=== PATIENT | male | born 1950 | race Caucasian/White ===

== ENCOUNTER → 2018-02-22 | Outpatient (CLI) | payer MEDICARE, OTHER ==
--- NOTE | 2018-02-23 08:31 | RADIOLOGY REPORT (SQ) ---
EXAM DESCRIPTION: MRI HEAD WITHOUT COMPLETED DATE/TIME: 02/22/2018 6:02 pm REASON FOR STUDY: R29.898 OTH SYMPTOMS AND SIGNS INVOLVING THE MUSCULOSKELETAL SYSTEM R27.8 R29.898 OTH SYMPTOMS AND SIGNS INVOLVING THE MUSCULOSKELETAL R27.8 OTHER LACK OF COORDINATION R25.1 TREMOR , UNSPECIFIED LEFT ARM AND HAND PARALYSIS, TONGUE TREMORS COMPARISON: MRI brain 06/11/2016 TECHNIQUE: Multiplanar imaging includes non-contrasted T1, T2, FLAIR, and diffusion with ADC map seq uences. Images stored on PACS. LIMITATIONS: Motion correction rapid sequences were used FINDINGS: ANATOMY: No anomalies. Normal vascular flow voids. Pituitary fossa normal. CSF SPACES: Normal in size and contour. No hemorrhage. CEREBRUM: Sulci and gyri normal in size and contour. Stable punctate foci of bifrontal increased whi te matter signal on FLAIR imaging, likely gliosis along perivascular spaces or minimal small vessel d isease, stable. No evidence of hemorrhage, mass, or extraaxial fluid collection. POSTERIOR FOSSA: No signal alteration. No hemorrhage. No edema, masses or mass effect. Internal rodrigo tory canals, cerebello-pontine angles, mastoids normal. DIFFUSION IMAGING: Negative for acute or sub-acute infarction. ORBITS: No masses. Globes normal. PARANASAL SINUSES: No fluid levels. Mucosa normal. OTHER: No other significant finding. IMPRESSION: ESSENTIALLY NORMAL MRI OF THE BRAIN FOR AGE, WITHOUT INTRAVENOUS GADOLINIUM CONTRAST. EVIDENCE OF ACUTE STROKE: NO. TECHNICAL DOCUMENTATION: JOB ID: [id number] [employer]- All Rights Reserved Reading location - IP/workstation name: [email or web address]
== END ==
LOC: RAD 17:53
PROVIDERS: ATTEND Psychiatry & Neurology Neurology
DX: R25.1 Tremor, unspecified (principal); R25.8 Other abnormal involuntary movements; R27.8 Other lack of coordination; R29.898 Other symptoms and signs involving the musculoskeletal system
CPT/HCPCS: 70551

== ENCOUNTER → 2019-03-14 | Outpatient (CLI) | payer MEDICARE, OTHER ==
--- NOTE | 2019-03-14 16:03 | RADIOLOGY REPORT (SQ) ---
EXAM DESCRIPTION: MRI LUMBAR SPINE WITHOUT COMPLETED DATE/TIME: 03/14/2019 1:28 pm REASON FOR STUDY: M54.5 LOW BACK PAIN M54.5 LOW BACK PAIN M43.06 SPONDYLOLYSIS, LUMBAR REGION COMPARISON: None. TECHNIQUE: Sagittal and Axial imaging includes T1, T2, STIR and gradient echo sequences. Coronal T2/ HASTE imaging. LIMITATIONS: None. FINDINGS: VISUALIZED UPPER ABDOMEN: Limited evaluation. No acute or suspicious findings suggested. SEGMENTATION: No transitional anatomy. The lowest well-developed disc space is labeled L5-S1. ALIGNMENT: There is convex rightward lumbar curvature VERTEBRAE: Intact. BONE MARROW: Degenerative vertebral body endplate changes are present with mixed fatty and sclerotic endplate changes L2 through L5. DISC SIGNAL: Diffuse decreased T2 weighted intervertebral disc signal with disc space loss of height throughout the lumbar spine POSTERIOR ELEMENTS: Generally intact. No pars defect evident. HARDWARE: None in the spine. CORD AND CONUS: Normal in size and signal intensity. Conus at the L1 level. SOFT TISSUES: No aortic aneurysm seen. No bulky retroperitoneal adenopathy or mass. No paraspinal mas s or fluid. T11-12: At the upper edge of the field of view. Mild central canal narrowing and mild bilateral for aminal narrowing from broad diffuse disc bulge and facet and ligament hypertrophy. T12-L1: Mild bilateral facet hypertrophy with mild bilateral foraminal narrowing. No central stenos is. L1-L2: Broad diffuse posterior disc bulging, moderate bilateral facet and ligament hypertrophy. No c entral stenosis. Mild bilateral foraminal narrowing. L2-L3: Broad diffuse posterior disc bulging is present with left paracentral foraminal and lateral di sc bulge. This flattens the thecal sac near the takeoff of the proximal left L3 nerve root in the la teral recess, best shown on axial T2 image 12. Mild to moderate central canal stenosis results from this bulge along with facet and ligament hypertrophy. Elsewhere at L2-3, there is moderate right and high-grade left foraminal narrowing. Effacement of th e fat around the exiting left L2 nerve root within the neural foramen. L3-L4: Broad diffuse posterior disc bulge and bony spurring, bulky bilateral facet and ligament hyper trophy. Mild central canal stenosis best shown on axial T2 images 16 and 17. Moderate right, high-g rade left foraminal narrowing is present with effacement of the fat around the exiting left L3 nerve root in the neural foramen. L4-L5: Broad diffuse posterior disc bulge and bony spurring, bulky bilateral facet hypertrophy cause borderline central canal narrowing best shown on axial image 22. Asymmetric flattening the thecal sa c along the right lateral recess containing the proximal right L5 nerve root on axial image 22. Elsewhere at L4-5, there is high-grade right and left foraminal narrowing with partial effacement of the fat around the exiting L4 nerve roots within the neural foramen. L5-S1: Mild diffuse posterior disc bulging, moderate bilateral facet and ligament hypertrophy. No ce ntral stenosis. High-grade right, moderate left foraminal narrowing. SACRUM: Visualized upper sacrum intact. OTHER: No other significant findings. IMPRESSION: Multilevel significant central and foraminal stenosis as above TECHNICAL DOCUMENTATION: JOB ID: [id number] [employer]- All Rights Reserved Reading location - IP/workstation name: [email or web address]
== END ==
LOC: RAD 12:34
PROVIDERS: ATTEND Internal Medicine
DX: M43.06 Spondylolysis, lumbar region (principal); M51.86 Other intervertebral disc disorders, lumbar region; M54.5 Low back pain
CPT/HCPCS: 72148

== ENCOUNTER → 2019-04-26 | Outpatient (CLI) | payer MEDICARE, OTHER ==
--- NOTE | 2019-04-26 13:39 | RADIOLOGY REPORT (SQ) ---
EXAM DESCRIPTION: MRI CERVICAL SPINE WITHOUT COMPLETED DATE/TIME: 04/26/2019 12:16 pm REASON FOR STUDY: PAIN IN LEFT ARM (M79.602), SPINAL STENOSIS (M48.062), LOW BACK PAIN (M54.5 M48.06 2 SPINAL STENOSIS, LUMBAR REGION WITH NEUROGENIC ADELA M54.5 LOW BACK PAIN M79.602 PAIN IN LEFT AR M COMPARISON: None. TECHNIQUE: Sagittal and Axial imaging includes T1, T2, STIR and gradient echo sequences. LIMITATIONS: Motion artifact. FINDINGS: ALIGNMENT: Reversal of lordotic curve. Grade 1 spondylolisthesis C4-5. VERTEBRAE: Intact. BONE MARROW: Normal. No marrow replacement or reactive changes. DISCS: Desiccation multiple levels. HARDWARE: None in the spine. CORD AND BASE OF BRAIN: Normal in size and signal intensity. SOFT TISSUES: No soft tissue masses. C1-C2: No significant spinal stenosis. C2-C3: No significant spinal stenosis or exit foraminal stenosis. C3-C4: Mild spinal stenosis due to disc osteophyte complex and uncovertebral arthropathy. Moderate n eural foraminal narrowing bilaterally. C4-C5: Moderate spinal stenosis. Severe neural foraminal narrowing bilaterally. C5-C6: Mild spinal stenosis. Severe neural foraminal narrowing bilaterally. C6-C7: Mild spinal stenosis. Moderate neural foraminal narrowing bilaterally. C7-T1: No significant stenosis. UPPER THORACIC: Incompletely imaged. No significant spinal stenosis or exit foraminal stenosis. OTHER: No other significant finding. IMPRESSION: Spinal stenosis at multiple levels, most severe at C4-5. Varying degrees of neural fora venecia stenosis. TECHNICAL DOCUMENTATION: JOB ID: [id number] [employer]- All Rights Reserved Reading location - IP/workstation name: [email or web address]
== END ==
LOC: RAD 10:08
PROVIDERS: ATTEND Orthopaedic Surgery
DX: M48.062 Spinal stenosis, lumbar region with neurogenic claudication (principal); M48.02 Spinal stenosis, cervical region; M54.5 Low back pain; M79.602 Pain in left arm
CPT/HCPCS: 72141

== ENCOUNTER 2019-11-30 21:40 | Observation (INO) | payer MEDICARE, OTHER ==
[2019-11-30] MEDS ORDERED: RINGERS LACTATED IV ONE (22:10)
[2019-11-30] MEDS ORDERED: ONDANSETRON HCL INJ/PF 4 MG/2 ML SDV IV ONE (22:12)
--- NOTE | 2019-11-30 22:20 | ER Document Report ---
ED Fever - General Chief Complaint: Fever Stated Complaint: FEVER Time Seen by Provider: 11/30/19 21:55 Notes: Patient is a 69-year-old male that comes emergency department for chief complaint of fever and shaking chills. He also reports abdominal pain mainly in the upper abdomen and on the right side, he points to his lower ribs. He states that he started having abdominal pain almost 1 day ago after he ate "too small burgers at [employer]". He denies diarrhea but he did vomit once. He denies hematochezia or hematemesis. He denies cough, shortness of breath, chest pain, headache, neck pain, sore throat, congestion. He denies any obvious sick contacts. He denies any abdominal surgeries. Past medical history of right hip replacement, scoliosis, baseline tremor that he is undergoing neurology work-up for. He denies any other medical history including any cardiovascular history, diabetes, or blood thinners. TRAVEL OUTSIDE OF THE [place] IN LAST 30 DAYS: No - Related Data Allergies/Adverse Reactions: No Known Allergies Allergy (Unverified 11/30/19 21:58) Past Medical History - General Information source: Patient - Social History Smoking Status: Never Smoker Frequency of alcohol use: None Drug Abuse: None Lives with: Family Family History: Reviewed & Not Pertinent Neurological Medical History: Reports: Other - Essential tremor Musculoskeletal Medical History: Reports Other - Scoliosis Past Surgical History: Reports: Hx Orthopedic Surgery - Immunizations Immunizations up to date: Yes Hx Diphtheria, Pertussis, Tetanus Vaccination: Yes Review of Systems - Review of Systems Constitutional: See HPI EENT: No symptoms reported Cardiovascular: No symptoms reported Respiratory: No symptoms reported Gastrointestinal: See HPI Genitourinary: No symptoms reported Male Genitourinary: No symptoms reported Musculoskeletal: No symptoms reported Skin: No symptoms reported Hematologic/Lymphatic: No symptoms reported Neurological/Psychological: No symptoms reported Physical Exam - Vital signs Vitals: Temp 98.2 F 11/30/19 21:41 - Notes Notes: GENERAL: Alert, interacts well. No acute distress. HEAD: Normocephalic, atraumatic. EYES: Pupils equal, round, and reactive to light. Extraocular movements intact. Left eye slightly deviated with mild exotropia ENT: Oral mucosa moist, tongue midline. Oropharynx unremarkable. Airway patent. NECK: Full range of motion. Supple. Trachea midline. No lymphadenopathy. LUNGS: Clear to auscultation bilaterally, no wheezes, rales, or rhonchi. No respiratory distress. Non-tender chest wall. HEART: Regular rate and rhythm. No murmur ABDOMEN: There is some tenderness in the generalized mid to right upper abdomen although there is no guarding or rigidity, no distention, bowel sounds are present. GENITOURINARY: No swelling or tenderness EXTREMITIES: Moves all 4 extremities spontaneously. No edema, normal radial and dorsalis pedis pulses bilaterally. No cyanosis. BACK: no cervical, thoracic, lumbar midline tenderness. No saddle anesthesia, normal distal neurovascular exam. Moves all extremities in full range of motion. NEUROLOGICAL: Alert and oriented x3. Normal speech. Cranial nerves II through XII grossly intact. Strength 5/5 in all extremities. PSYCH: Normal affect, normal mood. SKIN: Warm, dry, normal turgor. No rashes or lesions noted. Course - Re-evaluation Re-evalutation: Patient initially mildly hypotensive, mildly tachycardic, and he reportedly had a fever with EMS as well which is been treated. However on my exam patient is alert, conversational, nontoxic in appearance. He does have some upper abdominal pain specifically in the right upper quadrant, he has no other symptoms. CBC shows my leukocytosis with elevation of neutrophils, blood gas unremarkable, lactic acid is mildly elevated at 2.3. Chemistry nonspecific, lipase is not elevated. Urinalysis unremarkable. CT of the abdomen pelvis with IV contrast performed, this shows a very large gallstone and evidence of acute cholecystitis with wall thickening and pericholecystic fluid. Patient was started on Zosyn, has been given IV fluids at 30 cc/kg bolus initially, will be kept n.p.o. I called and spoke with surgeon Dr. Hunter, he will come evaluate the patient. I discussed details with patient at length, called and spoke with his at [phone]. Dr. Hunter evaluated the patient, patient accepted to the surgical service. - Vital Signs Vital signs: Temp Pulse Resp BP Pulse Ox 98.4 F 91 18 129/55 H 98 12/01/19 05:51 12/01/19 05:51 12/01/19 05:51 12/01/19 05:51 12/01/19 05:51 - Laboratory Result Diagrams: 11/30/19 22:27 11/30/19 22:27 Laboratory results interpreted by me: 11/30/19 11/30/19 11/30/19 21:58 22:27 22:27 WBC 11.4 H Seg Neuts % (Manual) 92 H Lymphocytes % (Manual) 1 L Abs Neuts (Manual) 10.5 H Abs Lymphs (Manual) 0.1 L Glucose 123 H Lactic Acid AST 16 L Urine Protein 30 H 11/30/19 22:27 WBC Seg Neuts % (Manual) Lymphocytes % (Manual) Abs Neuts (Manual) Abs Lymphs (Manual) Glucose Lactic Acid 2.3 H AST Urine Protein Discharge - Discharge Clinical Impression: Acute cholecystitis Fever Qualifiers: Fever type: unspecified Qualified Code(s): R50.9 - Fever, unspecified Condition: Stable Disposition: ADMITTED INPATIENT Admitting Provider: Surgicalist Unit Admitted: Surgical Floor
--- NOTE | 2019-11-30 23:08 | RADIOLOGY REPORT (SQ) ---
EXAM DESCRIPTION: XR CHEST 1 VIEW COMPLETED DATE/TME: 11/30/2019 22:11 CLINICAL HISTORY: 69 years, Male, fever COMPARISON: Prior study from 12/15/2017 NUMBER OF VIEWS: One TECHNIQUE: Single frontal view of the chest was obtained portably LIMITATIONS: None. FINDINGS: Cardiac and mediastinal contours are stable. Lungs are clear. No pleural effusion or pneumothorax. IMPRESSION: No acute disease. copyright 2010 [employer]- All Rights Reserved
[2019-11-30 23:09] LABS: APPEARANCE,URINE SLIGHTLY-CLOUDY; BILIRUBIN,URINE NEGATIVE (NEGATIVE); COLOR,URINE YELLOW; GLUCOSE, URINE NEGATIVE (NEGATIVE); KETONES,URINE NEGATIVE (NEGATIVE); PROTEIN,URINE 30 mg/dL (NEGATIVE); URINE SPECIFIC GRAVITY 1.025; UROBILINOGEN,URINE NEGATIVE mg/dL (<2.0)
[2019-11-30 23:17] LABS: HEMATOCRIT 40.2 % (37.9-51.0); HEMOGLOBIN 13.8 g/dL (13.5-17.0); MEAN CORPUSCULAR HEMOGLOBIN 31.7 pg (27.0-33.4); MEAN CORPUSCULAR HGB CONC 34.4 g/dL (32.0-36.0); MEAN CORPUSCULAR VOLUME 92 fl (80-97); PLATELET COUNT 219 10^3/uL (150-450); RED BLOOD COUNT 4.35 10^6/uL (4.35-5.55); WHITE BLOOD COUNT 11.4 10^3/uL (4.0-10.5)
[2019-11-30 23:20] LABS: VENOUS BLOOD BASE EXCESS 1.1 mmol/L; VENOUS BLOOD HCO3 26.1 mmol/L (20-32); VENOUS BLOOD PCO2 42.8 mmHg (35-63); VENOUS BLOOD PH 7.4 (7.30-7.42)
[2019-11-30 23:23] LABS: INTERNATIONAL RATION (INR) 1.16; PROTHROMBIN TIME 14.9 SEC (11.4-15.4)
[2019-11-30 23:36] LABS: ALKALINE PHOSPHATASE 78 U/L (38-126); ANION GAP 8 (5-19); ASPARTATE AMINO TRANSFERASE 16 U/L (17-59); BILIRUBIN,TOTAL 1.2 mg/dL (0.2-1.3); BLOOD UREA NITROGEN 14 mg/dL (7-20); CALCIUM 8.8 mg/dL (8.4-10.2); CARBON DIOXIDE 27 mmol/L (22-30); CHLORIDE 103 mmol/L (98-107); GLUCOSE 123 mg/dL (75-110); POTASSIUM 3.7 mmol/L (3.6-5.0); TOTAL PROTEIN 6.4 g/dL (6.3-8.2)
[2019-11-30 23:42] LABS: ABSOLUTE LYMPHOCYTES# (MANUAL) 0.1 10^3/uL (0.5-4.7); ABSOLUTE MONOCYTES # (MANUAL) 0.8 10^3/uL (0.1-1.4); BASOPHILS % (MANUAL) 0 % (0-2); EOSINOPHILS % (MANUAL) 0 % (0-6); LYMPHOCYTES % (MANUAL) 1 % (13-45); MONOCYTES % (MANUAL) 7 % (3-13); SEGMENTED NEUTROPHILS % (MAN) 92 % (42-78); TOTAL CELLS COUNTED 100
[2019-11-30 23:48] LABS: OVALOCYTES SLIGHT; PLATELET COMMENT ADEQUATE; POIKILOCYTOSIS SLIGHT; TOXIC GRANULATION SLIGHT
--- NOTE | 2019-12-01 00:53 | RADIOLOGY REPORT (SQ) ---
EXAM DESCRIPTION: CT ABDOMEN PELVIS WITH IV CONTRAST COMPLETED DATE/TME: 11/30/2019 23:45 CLINICAL HISTORY: 69 years Male, fever, mid/upper abd pain Comparison: None. Technique: IV contrast. Coronal and sagittal reformat. This exam was performed according to our departmental dose-optimization program, which includes automated exposure control, adjustment of the mA and/or kV according to patient size and/or use of iterative reconstruction technique. [facility]: Dose Right [facility]: CareDose [facility]: Dose Right [facility]: Teradose 4D [facility]: [employer] LIMITATIONS: None Findings: 2.6 cm gallstone, diffuse gallbladder wall thickening, and small pericholecystic fluid. Differential diagnosis includes cholecystitis. Right total hip arthroplasty. Vacuum disc desiccation. Colonic diverticulosis. Minimal hiatal hernia. Moderate disc bulges between the L2 and S1 levels. No ascites. No pneumoperitoneum. No evidence of appendicitis. Appendix not definitively discerned/appendectomy. No bowel obstruction. No hydronephrosis or hydroureter. No renal/ureteral stone. No evidence of abdominal aortic aneurysm. Inferior thorax, liver, pancreas, spleen, adrenals, renal system, gastrointestinal tract, pelvic organs, lymphatics, vasculature, and musculoskeleton appear otherwise unremarkable. IMPRESSION: 2.6 cm gallstone, diffuse gallbladder wall thickening, and small pericholecystic fluid. Differential diagnosis includes acute cholecystitis.
[2019-12-01] MEDS ORDERED: PIPERACILLIN/TAZOBACTAM 3.375 GM VIAL IV ONE (00:54)
[2019-12-01] MEDS ORDERED: ONDANSETRON HCL INJ/PF 4 MG/2 ML SDV IV PRN (03:20)
[2019-12-01] MEDS ORDERED: NORMAL SALINE 500 ML IV ONE (03:20)
--- NOTE | 2019-12-01 03:20 | PDOC H&P ---
History of Present Illness Admission Date/PCP: MICHAEL BROWN MD Patient complains of: Abdominal pains and fever History of Present Illness: SY SHELDON JR is a 69 year old male started complaining of epigastric and right upper quadrant pains 2 days ago. Yesterday patient complained of fever and subsequently went to ED or CT scan of the abdomen showed large 2.6 cm stone with thickening of the gallbladder wall compatible with acute cholecystitis. He ate greasy food prior to initial abdominal pains. Initially associated with nausea and vomiting. Past Surgical History Past Surgical History: Reports: Orthopedic Surgery - Hip surgery Social History Lives with: Family Smoking Status: Former Smoker Family History Parental Family History Reviewed: Yes Children Family History Reviewed: No Sibling(s) Family History Reviewed.: No Medication/Allergy Allergies/Adverse Reactions: No Known Allergies Allergy (Unverified 11/30/19 21:58) Review of Systems Constitutional: PRESENT: as per HPI Cardiovascular: PRESENT: other - Denies chest pain Snarr cough Gastrointestinal: PRESENT: abdominal pain, nausea, vomiting Musculoskeletal: PRESENT: other - Has tremors of the upper and lower extremities. At present not diagnosed as having Parkinson's Neurological: PRESENT: tremor(s) - Of all extremities Physical Exam Vital Signs: Temp Pulse Resp BP Pulse Ox 99.4 F 102 H 14 118/69 99 11/30/19 23:30 11/30/19 21:56 12/01/19 03:01 12/01/19 03:01 12/01/19 03:01 Intake & Output 11/29/19 11/30/19 12/01/19 06:59 06:59 06:59 Intake Total 11 Balance 11 Weight 89.811 kg General appearance: PRESENT: mild distress Head exam: PRESENT: atraumatic Eye exam: PRESENT: conjunctiva pink Mouth exam: PRESENT: moist Neck exam: PRESENT: full ROM Respiratory exam: PRESENT: clear to auscultation lilia Cardiovascular exam: PRESENT: RRR Pulses: PRESENT: normal radial pulses Vascular exam: PRESENT: normal capillary refill GI/Abdominal exam: PRESENT: soft, tenderness - Mild tenderness in the right upper quadrant Rectal exam: PRESENT: deferred Extremities exam: PRESENT: other - Tremors of the upper and lower extremities Musculoskeletal exam: PRESENT: ambulatory Neurological exam: PRESENT: alert, oriented to person, oriented to place, oriented to time, oriented to situation Psychiatric exam: PRESENT: appropriate affect Skin exam: PRESENT: normal color, warm Results Laboratory Results: 11/30/19 22:27 11/30/19 22:27 11/30/19 11/30/19 11/30/19 21:58 22:27 22:27 WBC 11.4 H RBC 4.35 Hgb 13.8 Hct 40.2 MCV 92 MCH 31.7 MCHC 34.4 RDW 13.0 Plt Count 219 Seg Neutrophils % Not Reportable VBG pH VBG pCO2 VBG HCO3 VBG Base Excess Sodium 137.5 Potassium 3.7 Chloride 103 Carbon Dioxide 27 Anion Gap 8 BUN 14 Creatinine 0.81 Est GFR ( Amer) > 60 Glucose 123 H Lactic Acid Calcium 8.8 Total Bilirubin 1.2 AST 16 L Alkaline Phosphatase 78 Total Protein 6.4 Albumin 4.0 Lipase Urine Color YELLOW Urine Appearance SLIGHTLY-CLOUDY Urine pH 5.0 Ur Specific [place] 1.025 Urine Protein 30 H Urine Glucose (UA) NEGATIVE Urine Ketones NEGATIVE Urine Blood NEGATIVE Urine RBC (Auto) 1 11/30/19 11/30/19 11/30/19 22:27 22:27 22:27 WBC RBC Hgb Hct MCV MCH MCHC RDW Plt Count Seg Neutrophils % VBG pH 7.40 VBG pCO2 42.8 VBG HCO3 26.1 VBG Base Excess 1.1 Sodium Potassium Chloride Carbon Dioxide Anion Gap BUN Creatinine Est GFR ( Amer) Glucose Lactic Acid 2.3 H Calcium Total Bilirubin AST Alkaline Phosphatase Total Protein Albumin Lipase 42.2 Urine Color Urine Appearance Urine pH Ur Specific [place] Urine Protein Urine Glucose (UA) Urine Ketones Urine Blood Urine RBC (Auto) 12/01/19 01:13 WBC RBC Hgb Hct MCV MCH MCHC RDW Plt Count Seg Neutrophils % VBG pH VBG pCO2 VBG HCO3 VBG Base Excess Sodium Potassium Chloride Carbon Dioxide Anion Gap BUN Creatinine Est GFR ( Amer) Glucose Lactic Acid 1.4 Calcium Total Bilirubin AST Alkaline Phosphatase Total Protein Albumin Lipase Urine Color Urine Appearance Urine pH Ur Specific [place] Urine Protein Urine Glucose (UA) Urine Ketones Urine Blood Urine RBC (Auto) 11/30/19 22:27 Troponin I < 0.012 Impressions: Chest X-Ray 11/30/19 22:11 IMPRESSION: No acute disease. copyright 2011 [employer]- All Rights Reserved Abdomen/Pelvis CT 11/30/19 23:45 IMPRESSION: 2.6 cm gallstone, diffuse gallbladder wall thickening, and small pericholecystic fluid. Differential diagnosis includes acute cholecystitis. Assessment & Plan - Diagnosis (1) Cholelithiasis Is this a current diagnosis for this admission?: Yes (2) Acute cholecystitis Is this a current diagnosis for this admission?: Yes (3) Fever Qualifiers: Fever type: unspecified Qualified Code(s): R50.9 - Fever, unspecified Is this a current diagnosis for this admission?: Yes - Time Time Spent: 30 to 50 Minutes - Inpatient Certification Medical Necessity: Need For IV Fluids, Need for IV Antibiotics, Need for Surgery - Plan Summary Plan Summary: 69-year-old male with about 2 days duration of right upper quadrant pains as sociated with fever nausea and vomiting came to ED last night. Patient denies any underlying health problems other than tremors of the extremities though he claims not diagnosed to have Parkinson's disease yet. A CT scan of the abdomen was done which showed a large gallstone about 2.6 cm with dilated gallbladder and thickened gallbladder wall compatible with acute cholecystitis. Plans: Start IV antibiotics Hydrate For laparoscopic cholecystectomy by Dr. Burroughs today
[2019-12-01] MEDS: DEXTROSE 5%-LACTATED RINGERS 1,000 ML IV PRN ×2 (04:43→19:52)
--- NOTE | 2019-12-01 06:06 | PDOC CONSULTATION ---
Consultation Consult Date: 12/01/19 Attending physician:: FARRAH DAWSON Provider Consulted: STEFFEN SAMPSON Consult reason:: Abnormal EKG History of Present Illness Admission Date/PCP: 12/01/19 03:16 MICHAEL BROWN MD Patient complains of: Abdominal pain and fever History of Present Illness: SY SHELDON JR is a 69 year old male with a past medical history of involuntary tremor presents with 2 days of right upper quadrant pain. Emergency room work-up reveals an abnormal EKG and a 2.6 cm stone with gallbladder wall thickening suggestive of acute cholecystitis. He started on empiric antibiotics and referred to surgery. Patient denies history of abnormal heart rhythm, palpitations, nausea vomiting or chest pain with exertion Past Medical History Cardiac Medical History: Reports: None Pulmonary Medical History: Reports: None Neurological Medical History: Reports: Other - 2 years of involuntary tremor suggestive of Parkinson's Malignancy Medical History: Reports: None Psychiatric Medical History: Reports: None Past Surgical History Past Surgical History: Reports: Orthopedic Surgery - Hip surgery Social History Information Source: Patient, [facility] Records Lives with: Family Smoking Status: Former Smoker Frequency of Alcohol Use: Rare Drugs: None - Advance Directive Resuscitation Status: Full Code Family History Family History: Hypertension Parental Family History Reviewed: Yes Children Family History Reviewed: Yes Sibling(s) Family History Reviewed.: Yes Medication/Allergy Allergies/Adverse Reactions: No Known Allergies Allergy (Unverified 11/30/19 21:58) Review of Systems Constitutional: ABSENT: chills, fever(s), headache(s), weight gain, weight loss Eyes: ABSENT: visual disturbances Ears: ABSENT: hearing changes Cardiovascular: ABSENT: chest pain, dyspnea on exertion, edema, orthropnea, palpitations Respiratory: ABSENT: cough, hemoptysis Gastrointestinal: ABSENT: abdominal pain, constipation, diarrhea, hematemesis, hematochezia, nausea, vomiting Genitourinary: ABSENT: dysuria, hematuria Musculoskeletal: ABSENT: joint swelling Integumentary: ABSENT: rash, wounds Neurological: ABSENT: abnormal gait, abnormal speech, confusion, dizziness, focal weakness, syncope Psychiatric: ABSENT: anxiety, depression, homidical ideation, suicidal ideation Endocrine: ABSENT: cold intolerance, heat intolerance, polydipsia, polyuria Hematologic/Lymphatic: ABSENT: easy bleeding, easy bruising Physical Exam Vital Signs: Temp Pulse Resp BP Pulse Ox 98.7 F 102 H 19 122/64 98 12/01/19 05:00 11/30/19 21:56 12/01/19 05:01 12/01/19 05:00 12/01/19 05:01 Intake & Output 11/29/19 11/30/19 12/01/19 11:59 11:59 11:59 Intake Total 3190 Balance 3190 Weight 89.811 kg General appearance: PRESENT: no acute distress, cooperative, well-developed, well-nourished Head exam: PRESENT: atraumatic, normocephalic Eye exam: PRESENT: conjunctiva pink, EOMI, PERRLA. ABSENT: scleral icterus Ear exam: PRESENT: normal external ear exam Mouth exam: PRESENT: moist, tongue midline Neck exam: ABSENT: carotid bruit, JVD, lymphadenopathy, thyromegaly Respiratory exam: PRESENT: clear to auscultation lilia. ABSENT: rales, rhonchi, wheezes Cardiovascular exam: PRESENT: RRR. ABSENT: diastolic murmur, rubs, systolic murmur Pulses: PRESENT: normal dorsalis pedis pul Vascular exam: PRESENT: normal capillary refill GI/Abdominal exam: PRESENT: normal bowel sounds, soft. ABSENT: distended, guarding, mass, organolmegaly, rebound, tenderness Rectal exam: PRESENT: deferred Extremities exam: PRESENT: full ROM. ABSENT: calf tenderness, clubbing, pedal e stephanie Neurological exam: PRESENT: alert, awake, oriented to person, oriented to place, oriented to time, oriented to situation, CN II-XII grossly intact, other - Tongue fasciculations with pill-rolling tremor. ABSENT: motor sensory deficit Psychiatric exam: PRESENT: appropriate affect, normal mood. ABSENT: homicidal ideation, suicidal ideation Skin exam: PRESENT: dry, intact, warm. ABSENT: cyanosis, rash Results Laboratory Results: 11/30/19 22:27 11/30/19 22:27 11/30/19 11/30/19 11/30/19 21:58 22:27 22:27 WBC 11.4 H RBC 4.35 Hgb 13.8 Hct 40.2 MCV 92 MCH 31.7 MCHC 34.4 RDW 13.0 Plt Count 219 Seg Neutrophils % Not Reportable VBG pH VBG pCO2 VBG HCO3 VBG Base Excess Sodium 137.5 Potassium 3.7 Chloride 103 Carbon Dioxide 27 Anion Gap 8 BUN 14 Creatinine 0.81 Est GFR ( Amer) > 60 Glucose 123 H Lactic Acid Calcium 8.8 Total Bilirubin 1.2 AST 16 L Alkaline Phosphatase 78 Total Protein 6.4 Albumin 4.0 Lipase Urine Color YELLOW Urine Appearance SLIGHTLY-CLOUDY Urine pH 5.0 Ur Specific [place] 1.025 Urine Protein 30 H Urine Glucose (UA) NEGATIVE Urine Ketones NEGATIVE Urine Blood NEGATIVE Urine RBC (Auto) 1 11/30/19 11/30/19 11/30/19 22:27 22:27 22:27 WBC RBC Hgb Hct MCV MCH MCHC RDW Plt Count Seg Neutrophils % VBG pH 7.40 VBG pCO2 42.8 VBG HCO3 26.1 VBG Base Excess 1.1 Sodium Potassium Chloride Carbon Dioxide Anion Gap BUN Creatinine Est GFR ( Amer) Glucose Lactic Acid 2.3 H Calcium Total Bilirubin AST Alkaline Phosphatase Total Protein Albumin Lipase 42.2 Urine Color Urine Appearance Urine pH Ur Specific [place] Urine Protein Urine Glucose (UA) Urine Ketones Urine Blood Urine RBC (Auto) 12/01/19 12/01/19 01:13 04:56 WBC RBC Hgb Hct MCV MCH MCHC RDW Plt Count Seg Neutrophils % VBG pH VBG pCO2 VBG HCO3 VBG Base Excess Sodium Potassium Chloride Carbon Dioxide Anion Gap BUN Creatinine Est GFR ( Amer) Glucose Lactic Acid 1.4 1.0 Calcium Total Bilirubin AST Alkaline Phosphatase Total Protein Albumin Lipase Urine Color Urine Appearance Urine pH Ur Specific [place] Urine Protein Urine Glucose (UA) Urine Ketones Urine Blood Urine RBC (Auto) 11/30/19 22:27 Troponin I < 0.012 Impressions: Chest X-Ray 11/30/19 22:11 IMPRESSION: No acute disease. copyright 2011 [employer]- All Rights Reserved Abdomen/Pelvis CT 11/30/19 23:45 IMPRESSION: 2.6 cm gallstone, diffuse gallbladder wall thickening, and small pericholecystic fluid. Differential diagnosis includes acute cholecystitis. Assessment and Plan - Diagnosis (1) Abnormal EKG Is this a current diagnosis for this admission?: Yes Plan: Abnormal EKG is artifact secondary to tremor. Normal sinus rhythm verified by 3-lead placement EKG. (2) Acute cholecystitis Is this a current diagnosis for this admission?: Yes Plan: No cardiopulmonary risk factors justifying delay of laparoscopic cholecystectomy. (3) DVT prophylaxis Is this a current diagnosis for this admission?: Yes Plan: Suggest heparin 5000 units subcu every 8 and KARL stockings - Time Time Spent with patient: 15-24 minutes
[2019-12-01] MEDS ORDERED: SUCCINYLCHOLINE CHLORIDE INJ 200 MG/10 ML VIAL ONE (08:01)
[2019-12-01] MEDS ORDERED: ROCURONIUM BROMIDE INJ 50 MG/5 ML VIAL IV ONE (08:01)
[2019-12-01] MEDS ORDERED: BUPIVACAINE HCL 0.25 % INJ/PF (2.5 MG/1 ML) 30 ML VIAL ONE (09:58)
[2019-12-01] MEDS ORDERED: MIDAZOLAM 2 MG/2 ML INJ ONE (10:05)
[2019-12-01] MEDS ORDERED: LIDOCAINE 2% INJ-PF (20 MG/ML) 10 ML AMPUL ONE (10:05)
[2019-12-01] MEDS ORDERED: DEXAMETHASONE SOD PHOSPHATE INJ 4 MG/1 ML VIAL ONE (10:05)
[2019-12-01] MEDS ORDERED: ONDANSETRON HCL INJ/PF 4 MG/2 ML SDV ONE (10:05)
[2019-12-01] MEDS ORDERED: MORPHINE SULFATE 10 MG/ML INJ ONE (10:05)
[2019-12-01] MEDS ORDERED: FENTANYL CITRATE INJ/PF 100 MCG/2 ML AMPUL ONE (10:05)
[2019-12-01] MEDS ORDERED: PROPOFOL INJ 200 MG/20 ML VIAL IV ONE (10:06)
[2019-12-01] MEDS ORDERED: CEFAZOLIN INJ 1 GM VIAL ONE (10:31)
[2019-12-01] MEDS ORDERED: MEPERIDINE HCL/PF INJ 25 MG/1 ML DISP.SYRIN IV PRN (10:57)
[2019-12-01] MEDS ORDERED: DIPHENHYDRAMINE HCL 50 MG/ML VIAL IV PRN (10:57)
[2019-12-01] MEDS ORDERED: FENTANYL CITRATE INJ/PF 100 MCG/2 ML AMPUL IV PRN ×3 (10:57)
[2019-12-01] MEDS ORDERED: MORPHINE SULFATE 10 MG/ML INJ IV PRN (10:57)
[2019-12-01] MEDS ORDERED: PROMETHAZINE HCL INJ 25 MG/1 ML VIAL IV PRN ×2 (10:57)
--- NOTE | 2019-12-01 12:01 | Operative Report ---
Operative Report DATE OF SURGERY: 12/01/19 PREOPERATIVE DIAGNOSIS: Acute cholecystitis with cholelithiasis POSTOPERATIVE DIAGNOSIS: Same OPERATION: 1. Laparoscopic cholecystectomy. 2. Drainage of subhepatic space SURGEON: GREGG RO ANESTHESIA: GA TISSUE REMOVED OR ALTERED: 1 gallbladder with contents COMPLICATIONS: None ESTIMATED BLOOD LOSS: 70 cc INTRAOPERATIVE FINDINGS: See below PROCEDURE: After obtaining informed consent, the patient was taken to the operating room. General Anesthesia was induced; the arms were extended, and the abdomen was exposed, and prepped and draped in a sterile fashion. Instrumentation was set up for laparoscopic cholecystectomy. Surgical plan and surgical timeout were conducted. A vertical incision was made above the umbilicus, and a verres needle was inserted uneventfully into the peritoneal cavity. Pneumoperitoneum was established. The verres needle was removed and a 5 mm trocar was inserted and a 5 mm flexible laparoscope was inserted. Visualization of the peritoneal cavity confirmed safe uneventful entry. Under direct visualization 3 additional 5 mm ports were established, one in the subxiphoid position and second in the subcostal position. The findings are significant for bile stained peritoneal fluid which was asp irated easily. The gastro duodenal fatty tissue was adhesed to the fundus of the gallbladder and these adhesions were taken down under direct visualization with electrocautery. The gallbladder was markedly distended, with a thickened wall, significant edema consistent with acute cholecystitis. It was aspirated with a 5 mm trocar of approximately 75 cc of bile. A grasper was placed on the fundus of the gallbladder and the gallbladder is elevated over the right surface of the liver; a second grasper was used to grasp the infundibulum of the gallbladder. This is a very challenging dissection due to the edema and acute inflammation. Multiple photos were taken. Initially I started taking the gallbladder down from the fundus, however due to bleeding from the liver edge, this approach was aborted. I now turned my attention to the infundibulum. Meticulously, I dissected out the cystic artery and the cystic duct, and opened up the plate between the proximal deep side of the gallbladder, and the inferior side of the liver surface. This was done in a very controlled fashion. Eventually we have the gallbladder suspended from the cystic artery and the cystic duct which were in their usual locations. Photos were taken. I clipped the cystic artery twice proximally once distally divided with scissors. Now the critical view was obtained, demonstrating the nice triangulation between the gallbladder bed, cystic duct, and surface of the liver. Photos were taken. The cystic duct was now clipped one time distally, opened with scissors, milked of free bile, then clipped twice proximally and divided formally. Photos taken. The gallbladder was removed from the liver bed using hook cautery dissection. He had a lot of edema and a fair amount of oozing from the interface between the gallbladder and the liver bed. The gallbladder was now removed from the undersurface of the liver using hook cautery dissection. Graspers were repositioned and the gallbladder was placed in an Endobag, removed uneventfully from the abdominal cavity through the super umbilical port site incision extending the skin incision. The specimen was examined, then passed off to pathology for permanent analysis. We returned to the peritoneal cavity check for bleeding, and evidence of bile leak, and of oozing despite application of Surgicel from the inferior surface of the liver so large Praful drain was placed in the sub-costal position and secured to the skin with 2-0 Prolene suture and positioned chest in the subhepatic space in the field of dissection. we Confirmed satisfactory placement of clips on cystic duct and cystic artery were secured . Photos were taken. At this point we felt the operation was complete. The subcutaneous tissue was then anesthetized with quarter percent Marcaine Sponge and needle counts are correct. All ports removed under direct visualization pneumoperitoneum evacuated, the supraumbilical fascial defect was closed with multiple [id number] 0 Vicryl sutures and 5 mm port wounds closed with 3-0 Vicryl suture, benzoin and Steri-Strips. Drain was hooked to bulb suction. The patient was extubated, and taken to the recovery room in stable condition.
[2019-12-01] MEDS: KETOROLAC TROMETHAMINE INJ/PF 30 MG/1 ML SDV IV PRN ×2 (15:30→21:16)
[2019-12-01] MEDS: DOCUSATE SODIUM 100 MG CAPSULE PO SCH (17:48)
--- NOTE | 2019-12-01 20:53 | EKG REPORT ---
SEVERITY:- ABNORMAL ECG - PROBABLE SR CANNOT R/O A-FLUTTER/FIBRILLATION : Confirmed by: Jose Nicole 01-Dec-2019 20:53:25
--- NOTE | 2019-12-01 20:53 | EKG REPORT ---
SEVERITY:- ABNORMAL ECG - PROBABLE SR CAN NOT R/O A FIB/ FLUTTER NONSPECIFIC T ABNORMALITIES, INFERIOR LEADS : Confirmed by: Jose Nicole 01-Dec-2019 20:52:44
[2019-12-02] MEDS: KETOROLAC TROMETHAMINE INJ/PF 30 MG/1 ML SDV IV PRN (04:02)
--- NOTE | 2019-12-02 09:01 | PDOC PROGRESS REPORT ---
Subjective Progress Note for:: 12/02/19 Reason For Visit: ACUTE CHOLECYSTITIS Feels well, minimal pain, tolerated diet, getting up with 's assistance Physical Exam Vital Signs: Temp Pulse Resp BP Pulse Ox 98.6 F 72 18 120/55 L 95 12/02/19 04:42 12/02/19 04:42 12/02/19 04:42 12/02/19 04:42 12/02/19 04:42 Intake & Output 12/01/19 12/02/19 12/03/19 06:59 06:59 06:59 Intake Total 3190 4410 1000 Output Total 1818 Balance 3190 2592 1000 Weight 92.7 kg 91 kg General appearance: PRESENT: other GI/Abdominal exam: PRESENT: other - Abdomen soft, nontender no peritoneal signs no rigidity. Drain with serosanguineous fluid, discontinued Results Laboratory Results: 11/30/19 22:27 11/30/19 22:27 11/30/19 22:27 Troponin I < 0.012 Impressions: Chest X-Ray 11/30/19 22:11 IMPRESSION: No acute disease. copyright 2011 [employer]- All Rights Reserved Abdomen/Pelvis CT 11/30/19 23:45 IMPRESSION: 2.6 cm gallstone, diffuse gallbladder wall thickening, and small pericholecystic fluid. Differential diagnosis includes acute cholecystitis. Assessment & Plan - Diagnosis (1) Acute cholecystitis Is this a current diagnosis for this admission?: Yes Plan: Impression: Doing well status post laparoscopic cholecystectomy Plan: We will discharge patient, follow-up with [facility] in 1 to 2 weeks. He will take Motrin or Tylenol as needed pain. - Time Time Spent: 30 to 50 Minutes
[2019-12-02] MEDS: DOCUSATE SODIUM 100 MG CAPSULE PO SCH (09:02)
--- NOTE | 2019-12-02 09:05 | PDOC DISCHARGE SUMMARY ---
General - Admit/Disc Date/PCP Admission Date/Primary Care Provider: 12/01/19 03:16 MICHAEL BROWN MD Discharge Date: 12/02/19 - Discharge Diagnosis Final Diagnosis: Acute cholecystitis with cholelithiasis - Assessment Summary: Patient is a 69-year-old white male with a history of disorder, undiagnosed, resting tremor, who presents emergency department complaining of acute onset abdominal pain. He was evaluated and found by CT scan of the abdomen and pelvis as well as ultrasound to have acute cholecystitis with cholelithiasis. He was admitted to the surgical service for further care. Patient was kept n.p.o. on IV fluids and taken to the operating room on 12/01/[address] Burroughs where he underwent laparoscopic cholecystectomy with drain placement. He tolerated proce dure well. There are no complications. The following morning he was found to be doing well with relief of his symptoms. His drain was removed. He was tolerating a diet and moving about with assistance consistent with the preoperative level of function. He was felt to have received maximum benefit from his hospitalization and was discharged home. - Additional Information Resuscitation Status: Full Code Discharge Diet: As Tolerated Discharge Activity: Activity As Tolerated Referrals: DIPAK COULTER MD [NO LOCAL MD] - Follow up as needed Home Medications: Acetaminophen [Tylenol] 325 mg PO DAILYP PRN 12/01/19 Celecoxib [Celebrex 200 mg Capsule] 200 mg PO DAILY 12/01/19 Escitalopram Oxalate [Lexapro 10 mg Tablet] 10 mg PO QAM 12/01/19 Tramadol/Apap 2 tab PO HSP PRN 12/01/19 Turmeric Root Extract [Turmeric] 1,000 mg PO BID 12/01/19 Additional Information: Patient to follow-up with [facility] in 1 to 2 weeks; will call for an appointment on Tuesday, December 02 for same. He will take Tylenol and Motrin as needed pain. History of Present Illiness History of Present Illness: SY SHELDON JR is a 69 year old male Physical Exam Vital Signs: Temp Pulse Resp BP Pulse Ox 98.6 F 72 18 120/55 L 95 12/02/19 04:42 12/02/19 04:42 12/02/19 04:42 12/02/19 04:42 12/02/19 04:42 Intake & Output 12/01/19 12/02/19 12/03/19 06:59 06:59 06:59 Intake Total 3190 4410 1000 Output Total 1818 Balance 3190 2592 1000 Weight 92.7 kg 91 kg Results Laboratory Results: WBC 11.4 10^3/uL (4.0-10.5) H 11/30/19 22:27 RBC 4.35 10^6/uL (4.35-5.55) 11/30/19 22:27 Hgb 13.8 g/dL (13.5-17.0) 11/30/19 22:27 Hct 40.2 % (37.9-51.0) 11/30/19 22:27 MCV 92 fl (80-97) 11/30/19 22: MCH 31.7 pg (27.0-33.4) 11/30/19 22: MCHC 34.4 g/dL (32.0-36.0) 11/30/19 22:27 RDW 13.0 % (11.5-14.0) 11/30/19 22:27 Plt Count 219 10^3/uL (150-450) 11/30/19 22:27 Lymph % (Auto) Not Reportable 11/30/19 22:27 [place] % (Auto) Not Reportable 11/30/19 22:27 Eos % (Auto) Not Reportable 11/30/19 22:27 Baso % (Auto) Not Reportable 11/30/19 22:27 Absolute Neuts (auto) Not Reportable 11/30/19 22:27 Absolute Lymphs (auto) Not Reportable 11/30/19 22:27 Absolute Monos (auto) Not Reportable 11/30/19 22:27 Absolute Eos (auto) Not Reportable 11/30/19 22:27 Absolute Basos (auto) Not Reportable 11/30/19 22:27 Total Counted 100 11/30/19 22:27 Seg Neutrophils % Not Reportable 11/30/19 22:27 Seg Neuts % (Manual) 92 % (42-78) H 11/30/19 22:27 Lymphocytes % (Manual) 1 % (13-45) L 11/30/19 22:27 Monocytes % (Manual) 7 % (3-13) 11/30/19 22:27 Eosinophils % (Manual) 0 % (0-6) 11/30/19: Basophils % (Manual) 0 % (0-2) 11/30/19: Abs Neuts (Manual) 10.5 10^3/uL (1.7-8.2) H 11/30/19: Abs Lymphs (Manual) 0.1 10^3/uL (0.5-4.7) L 11/30/19: Abs Monocytes (Manual) 0.8 10^3/uL (0.1-1.4) 11/30/19: Absolute Eos (Manual) 0.0 10^3/uL (0.0-0.6) 11/30/19: Abs Basophils (Manual) 0.0 10^3/uL (0.0-0.2) 11/30/19: Toxic Granulation SLIGHT 11/30/19: Platelet Comment ADEQUATE 11/30/19: Poikilocytosis SLIGHT 11/30/19: Ovalocytes SLIGHT 11/30/19: PT 14.9 SEC (11.4-15.4) 11/30/19: INR 1.16 11/30/19: VBG pH 7.40 (7.30-7.42) 11/30/19: VBG pCO2 42.8 mmHg (35-63) 11/30/19 VBG HCO3 26.1 mmol/L (20-32) 11/30/19: VBG Base Excess 1.1 mmol/L 11/30/19: Sodium 137.5 mmol/L (137-145) 11/30/19: Potassium 3.7 mmol/L (3.6-5.0) 11/30/19: Chloride 103 mmol/L (98-107) 11/30/19: Carbon Dioxide 27 mmol/L (22-30) 11/30/19: Anion Gap 8 (5-19) 11/30/19: BUN 14 mg/dL (7-20) 11/30/19: Creatinine 0.81 mg/dL (0.52-1.25) 11/30/19: Est GFR ( Amer) > 60 (>60) 11/30/19 22:27 Est GFR (MDRD) Non-Af > 60 (>60) 11/30/19 22:27 Glucose 123 mg/dL (75-110) H 11/30/19 22:27 Lactic Acid 1.0 mmol/L (0.7-2.1) 12/01/19 04:56 Calcium 8.8 mg/dL (8.4-10.2) 11/30/19 22:27 Total Bilirubin 1.2 mg/dL (0.2-1.3) 11/30/19 22:27 Direct Bilirubin 0.0 mg/dL (0.0-0.4) 11/30/19 22:27 Neonat Total Bilirubin Not Reportable 11/30/19 22:27 Neonat Direct Bilirubin Not Reportable 11/30/19 22:27 Neonat Indirect Bili Not Reportable 11/30/19 22:27 AST 16 U/L (17-59) L 11/30/19 22:27 ALT 13 U/L (<50) 11/30/19 22:27 Alkaline Phosphatase 78 U/L (38-126) 11/30/19 22:27 Troponin I < 0.012 ng/mL 11/30/19 22:27 Total Protein 6.4 g/dL (6.3-8.2) 11/30/19 22:27 Albumin 4.0 g/dL (3.5-5.0) 11/30/19 22:27 Lipase 42.2 U/L (23-300) 11/30/19 22:27 Urine Color YELLOW 11/30/19 21:58 Urine Appearance SLIGHTLY-CLOUDY 11/30/19 21:58 Urine pH 5.0 (5.0-9.0) 11/30/19 21:58 Ur Specific [place] 1.025 11/30/19 21:58 Urine Protein 30 mg/dL (NEGATIVE) H 11/30/19 21:58 Urine Glucose (UA) NEGATIVE mg/dL (NEGATIVE) 11/30/19 21:58 Urine Ketones NEGATIVE mg/dL (NEGATIVE) 11/30/19 21:58 Urine Blood NEGATIVE (NEGATIVE) 11/30/19 21:58 Urine Nitrite (Reflex) NEGATIVE (NEGATIVE) 11/30/19 21:58 Urine Bilirubin NEGATIVE (NEGATIVE) 11/30/19 21:58 Urine Urobilinogen NEGATIVE mg/dL (<2.0) 11/30/19 21:58 Leukocyte Esterase Rfl NEGATIVE (NEGATIVE) 11/30/19 21:58 Urine RBC (Auto) 1 /HPF 11/30/19 21:58 U Hyaline Cast (Auto) 5 /LPF 11/30/19 21:58 Urine WBC (Reflex) 1 /HPF 11/30/19 21:58 Squamous Epi Cells Auto <1 /HPF 11/30/19 21:58 Urine Mucus (Auto) MANY /LPF 11/30/19 21:58 Urine Ascorbic Acid NEGATIVE (NEGATIVE) 11/30/19 21:58 COVID-19 Source Cancelled 12/01/19 03:24 COVID-19 ([place]) Cancelled 12/01/19 03:24 SARS-CoV-2 (PCR) NEGATIVE (NEGATIVE) 12/01/19 04:13 11/30/19 22:27 Troponin I < 0.012 Impressions: Chest X-Ray 11/30/19 22:11 IMPRESSION: No acute disease. copyright 2011 [employer]- All Rights Reserved Abdomen/Pelvis CT 11/30/19 23:45 IMPRESSION: 2.6 cm gallstone, diffuse gallbladder wall thickening, and small pericholecystic fluid. Differential diagnosis includes acute cholecystitis.
[2019-12-02 09:15] VITALS: BP 127/63
== END 2019-12-02 09:52 | disposition home or self-care (01) ==
LOC: ER 21:40 → INTOOBSV 12-01 03:16 → EH 12-01 03:16 → 4S 12-01 05:45
PROVIDERS: ADMIT Surgery; ATTEND Surgery
DX: K80.12 Calculus of gallbladder with acute and chronic cholecystitis without obstruction (principal); R94.31 Abnormal electrocardiogram [ECG] [EKG]; R50.9 Fever, unspecified; G25.0 Essential tremor; I95.9 Hypotension, unspecified; R00.0 Tachycardia, unspecified; D72.828 Other elevated white blood cell count; M41.9 Scoliosis, unspecified; R74.0 Nonspecific elevation of levels of transaminase and lactic acid dehydrogenase [LDH]; Z03.818 Encounter for observation for suspected exposure to other biological agents ruled out; Z87.891 Personal history of nicotine dependence; Z96.641 Presence of right artificial hip joint
CPT/HCPCS: 93005 ×2; 99285; 96361; 96375; 96365; 36415 ×2; 87040; 83605 ×2; 83690; 85025; 85610; 80053; 81001; 84484; 82803; 88304 ×2; 71045; 74177; 93010 ×2; 00790; 47562; G0378 ×3; U0003; J0690; J3490 ×2; J1100; A9270 ×2; J3010; J1885 ×2; J2270; J0330; J2405 ×2; J7121; J7040; J7120; J2704; J2543; C9803; 790; 87635; J2250